=== PATIENT | female | born 1985 | race Caucasian/White ===

== ENCOUNTER 2019-10-19 13:38 | Outpatient (CLI) | payer BC, SELFPAY ==
[2019-10-19 14:39] LABS: Blood Urea Nitrogen 11 mg/dL (7-17); Calcium 9.1 mg/dL (8.4-10.2); Carbon Dioxide 23 mmol/L (22-30); Chloride 104 mmol/L (98-107); Estimated Glomerular Filt Rate > 60; Glucose 83 mg/dL (65-105); Potassium 3.8 mmol/L (3.4-5.0); Sodium 138 mmol/L (137-145)
[2019-10-19 14:54] LABS: Beta HCG Quantitative < 2.39 mIU/ML
[2019-10-22 06:44] LABS: Prolactin 2.4 ng/mL (***)
== END 2019-10-19 13:39 | disposition home or self-care (01) ==
PROVIDERS: PCP Family Medicine Adolescent Medicine; Visit Provider Surgery Plastic and Reconstructive Surgery
DX: O92.6 Galactorrhea (principal)
CPT/HCPCS: 36415; 80048; 84146; 84443; 84702

== ENCOUNTER 2021-06-17 18:50 | Emergency (ER) | payer BC, SELFPAY ==
--- NOTE | ~2021-06-17 | XR_ITS ---
EXAMINATION: XR chest 2V DATE: 06/17/2021 19:20 INDICATION: Cough and shortness of breath TECHNIQUE: PA and lateral views of the chest are obtained. COMPARISON: 05/24/2017 FINDINGS: There are minimal airspace opacities of the left lung base. There is no pleural effusion or pneumothorax. The cardiomediastinal silhouette is normal. The visualized bones and soft tissues are unremarkable. IMPRESSION: 1. Minimal left basilar airspace opacity, likely pneumonia. Reviewed, dictated and finalized at location F. TEGY LEAD
[2021-06-17 19:00] VITALS: BP 120/81; PULSE 82; RESP 18; TEMP 36.9; O2SAT 99
--- NOTE | 2021-06-17 19:18 | ED.URI ---
HPI - URI/Sore Throat General Chief Complaint: Upper Respiratory Infection Stated Complaint: Cough,Shortness of Breath,Chest Congestion,Headach Source: patient and RN notes reviewed Mode of arrival: ambulatory Limitations: no limitations History of Present Illness HPI Narrative: 36-year-old female presented for complaint of headache, sinus pressure/congestion, cough for 2 weeks. She has been taking [id number] medications for symptoms with minimal relief. Denies chest pain, palpitations, shortness of breath or wheezing, nausea, vomiting, diarrhea, fever or chills. She is vaccinated for flu and Covid. Denies sick contacts. MD elicited complaint: cough Related Data Home Medications Medication Instructions Recorded Confirmed sertraline 50 mg tablet 50 mg PO DAILY 10/04/19 06/17/21 levonorgestrel [Mirena] 1 insert INTRAUTERINE ONCE 06/17/21 06/17/21 Allergies Allergy/AdvReac Type Severity Reaction Status Date / Time milk Allergy Unknown Verified 02/26/18 15:40 No Known Drug Allergies Allergy Unknown Verified 06/17/21 19:15 NKDA Allergy Mild Uncoded 05/23/10 12:26 Review of Systems Review of Systems: CONSTITUTIONAL: Denies malaise, chills, sweats, fever EYES: Denies visual changes, redness, or discharge ENT: Reports rhinorrhea, congestion, sinus pain, denies otalgia, sore throat CARDIOVASCULAR: Denies chest pain, palpitations, edema RESPIRATORY: Reports cough, post nasal drainage. Denies dyspnea GASTROINTESTINAL: Denies abdominal pain, nausea, vomiting, diarrhea SKIN: Denies rash or itching MUSCULOSKELETAL: Denies myalgia NEUROLOGIC: Denies headache PMFSH Past Medical History Medical History Depression Surgical History Surgical History History of section, classical x2 2011, 2018 History of cholecystectomy 2011 History of hernia repair 2013 Family History Family History Grandparent Hypertension Family history of heart disease in male family member before age 55, Onset Age: 60 Acute myocardial infarction Social History Social History Smoking status: Former smoker Alcohol intake: current Exam Narrative: GENERAL: Ill-appearing, nontoxic no acute distress. HEAD: Normocephalic EYES: PERRLA, conjunctivae clear ENT: Mucous membranes moist. TM pearly nixon with light reflex bilaterally; no tragal tenderness. Oropharynx erythematous without lesions or exudate, no drooling, no hoarseness, no trismus, uvula midline. NECK: Supple. No lymphadenopathy CHEST: left base diminished, No wheezing, rhonchi, rales, or stridor. No respiratory distress, speaks in full sentences. HEART: Regular rate and rhythm. No murmur heard. SKIN: Warm, dry, no rash. NEURO: Alert and oriented x3. PSYCH: Normal mood and affect Course Course Emergency Course: CXR reviewed with pt. Patient is aware of diagnosis, understands and agrees to treatment plan. Anticipatory guidance given. Patient agrees to follow-up as directed and is aware of reasons to seek care at the emergency department. Portions of this record may have been created with voice recognition software Level of Care: Express Care Visit Vital Signs Vital signs: Vital Signs Temperature 98.5 F 06/17/21 19:00 Pulse Rate 82 06/17/21 19:00 Respiratory Rate 18 06/17/21 19:00 Blood Pressure 120/81 06/17/21 19:00 Pulse Oximetry 99 06/17/21 19:00 Temperature 98.5 F 06/17/21 19:00 Pulse Rate 82 06/17/21 19:00 Respiratory Rate 18 06/17/21 19:00 Blood Pressure 120/81 06/17/21 19:00 Pulse Oximetry 99 06/17/21 19:00 reviewed MDM - URI/Sore Throat Differential Diagnosis Differential diagnosis: Likely upper respiratory infection, sinusitis and viral infection Imaging Data Attestation: I personall
== END 2021-06-17 19:45 | disposition home or self-care (01) ==
PROVIDERS: Emergency Provider Nurse Practitioner Family; PCP Family Medicine Adolescent Medicine
DX: J18.1 Lobar pneumonia, unspecified organism (principal); Z87.891 Personal history of nicotine dependence; F32.A Depression, unspecified
CPT/HCPCS: 71046; 99213; G0463

== ENCOUNTER → 2022-12-29 14:24 | Outpatient (CLI) | payer BC, SELFPAY ==
--- NOTE | ~2022-12-29 | MMUS_ITS ---
EXAMINATION: MM diagnostic niki BI w francisca, US breast BI complete HISTORY: Bilateral yellow nipple discharge and right inferior breast pain TECHNIQUE: ML, MLO and CC 3-D tomosynthesis images of both breasts were performed and synthetic 2-D i mages were generated. CAD analysis was submitted and interpreted. High resolution bilateral complete breast ultrasound examination] L4 quadrants and subareolar areas was performed. COMPARISON: None BREAST PARENCHYMAL COMPOSITION: The breasts are extremely dense, which lowers the sensitivity of mamm ography. FINDINGS: MAMMOGRAPHIC FINDINGS: No suspicious mass or architectural distortion, malignant calcification, skin thickening or retractio n is detected. ULTRASOUND: There is a benign appearing circumscribed oval sonolucency measuring 3 x 5.5 x 5 mm, with through tra nsmission posterior enhancement at 12:00 6 cm from the nipple in the right breast, compatible with si mple cyst. No suspicious mass or shadowing or other significant sonographic abnormality in either breast is dete cted. IMPRESSION: 1. Benign findings; no mammographic or sonographic evidence of malignancy of either breast 2. Routine annual mammographic screening beginning at age 40 is recommended BI-RADS Category 2: Benign finding(s). Reviewed, dictated and finalized at location A. IMPRESSION: 1. Benign findings; no mammographic or sonographic evidence of malignancy of ei ther breast 2. Routine annual mammographic screening beginning at age 40 is recommended BI-RADS Category 2: Benign finding(s).
== END ==
PROVIDERS: PCP Nurse Practitioner; Visit Provider Nurse Practitioner
DX: N64.4 Mastodynia (principal)
CPT/HCPCS: 76641; 77062; 77066; G0279

== ENCOUNTER 2023-11-13 13:05 | Emergency (ER) | payer BC, SELFPAY ==
--- NOTE | ~2023-11-13 | XR_ITS ---
XR chest 2V 11/13/2023 13:43 Indication: Cough and shortness of breath Procedure: 2 view chest Comparison: Comparison to multiple prior studies sequentially, with oldest reviewed study dated 05/23. Findings: There is right lower lobe airspace disease, compatible with pneumonia. Heart size normal. L eft lung clear. No significant effusion. No pneumothorax. No edema. No acute osseous abnormality. Impression: 1: Right lower lobe airspace disease, compatible with pneumonia. Reviewed, dictated and finalized at location B. Impression: 1: Right lower lobe airspace disease, compatible with pneumonia.
--- NOTE | 2023-11-13 13:11 | ED.URI ---
HPI - URI/Sore Throat General Chief Complaint: Upper Respiratory Infection Stated Complaint: cough,rib pain Time Seen by Provider: 11/13/23 13:10 Source: patient Mode of arrival: ambulatory Limitations: no limitations History of Present Illness HPI Narrative: Claudia is a 38-year-old female who presents to clinic today with complaints of shortness of breath and a persistent cough for 6-9 days. She states she just came back from vacation in [place] with her family when she developed some upper respiratory like symptoms such as nasal congestion, rhinorrhea, headache, and a cough. She states no one else in her family is ill. She has been taking ibuprofen as needed for the headache but denies any other use of odyf-hyc-peoxhjv medications. She denies chest pain, palpitations, sore throat, or fever/chills. MD elicited complaint: cough, nasal congestion and other (Shortness of breath) Related Data Home Medications Medication Instructions Recorded Confirmed sertraline 50 mg tablet 50 mg PO DAILY 10/04/19 11/13/23 levonorgestrel 21 mcg/24 hr (up to 1 insert intrauterine ONCE 06/17/21 11/13/23 7 years) 52 mg intrauterine device (Mirena) Allergies Allergy/AdvReac Type Severity Reaction Status Date / Time No Known Allergies Allergy Verified 11/13/23 13:24 Review of Systems Review of Systems: Pertinent positives per HPI. Patient denies any fever, chills, rash, visual changes, dizziness, chest pain, palpitations, nausea, vomiting, diarrhea, constipation, abdominal pain, or any urinary issues. [facility] Past Medical History Medical History Depression Surgical History Surgical History History of section, classical x2 2011, 2018 History of cholecystectomy 2012 History of hernia repair 2013 Family History Family History Grandparent Hypertension Family history of heart disease in male family member before age 55, Onset Age: 60 Acute myocardial infarction Social History Social History Smoking status: Former smoker Alcohol intake: current Comments At the time of my signature, I reviewed and agree with the nursing past medical, surgical, social, and family history. There is no relevant family history pertinent to the patient complaint. Exam Narrative: General: Well-developed, well nourished, in no apparent distress Head: Normocephalic, atraumatic Eyes: Pupils equally round and reactive to light bilaterally, EOM intact, sclera and conjunctive clear, no discharge, lids normal Neck: Supple, trachea midline Cardio: Regular rate and rhythm, s1 and s2 normal, no murmur appreciated. Resp: Dyspnea with minimal exertion, bilateral rales most prominent on the RLL Course Course Emergency Course: Portions of this record may have been created with voice recognition software. Level of Care: Express Care Visit Vital Signs Vital signs: Vital signs reviewed MDM - URI/Sore Throat MDM Narrative Medical decision making narrative: At the time of visit patient is resting uncomfortably on the exam table. Patient appears ill. Diagnostics: Chest x-ray is positive for right lower lobe pneumonia Plan: I suspect patient likely has pneumonia. Prescriptions reviewed with patient. Advised to go to the ER if she develops any worsening signs of symptoms. Supportive measures were discussed with the patient and they voiced understanding discharge instructions and agrees to treatment plan. Return precautions reviewed Differential Diagnosis Differential diagnosis: Likely upper respiratory infection, sinusitis, viral infection, influenza, pharyngitis and other (Pneumonia) Imaging Data Radiologist's impression: ITS Impressions Chest X-Ray 11/13/23 13:44 Impression:
[2023-11-13 13:18] VITALS: BP 116/73; PULSE 102; RESP 18; TEMP 37.3; O2SAT 97
== END 2023-11-13 13:56 | disposition home or self-care (01) ==
PROVIDERS: Emergency Provider Nurse Practitioner Family; PCP Family Medicine Adolescent Medicine
DX: J18.9 Pneumonia, unspecified organism (principal); Z87.891 Personal history of nicotine dependence; F32.A Depression, unspecified
CPT/HCPCS: 71046; 99213; G0463